=== PATIENT | male | born 1975 | race Caucasian/White ===

== ENCOUNTER 2024-05-17 09:41 | Emergency (ER) | payer BC ==
[~2024-05-17] VITALS: Ht 175.3 cm; Wt 77.1 kg
== END 2024-05-17 13:10 | disposition left against medical advice (07) ==
LOC: ER 09:41
DX: Z00.8 Encounter for other general examination (principal); I10 Essential (primary) hypertension
CPT/HCPCS: 93005; 93010; 99281-25

== ENCOUNTER 2024-05-22 10:02 | Day surgery (SDC) | payer OTHER ==
[~2024-05-22] VITALS: Ht 175.3 cm; Wt 77.4 kg
[~2024-05-22 10:02] MED LIST: Lidocaine 1%-Epineph 1:100000 20 ML MDV ONE; NS 500 ML IV ONE
[2024-05-22] MEDS ORDERED: HYDCHL25 PO (10:41)
[2024-05-22] MEDS ORDERED: LOSA50 PO (10:41)
[2024-05-22] MEDS ORDERED: MULTIVITAMIN (10:42)
[2024-05-22] MEDS ORDERED: NS 500 ML IV ONE ×2 (11:01→12:06)
[2024-05-22] MEDS ORDERED: CeFAZolin Sodium 2,000 MG VIAL ONE (11:05)
[2024-05-22] MEDS ORDERED: FentaNYL Citrate 50 MCG/ML 2 ML Injection ONE (11:21)
[2024-05-22] MEDS ORDERED: propofoL 20 ML IV ONE (11:22)
[2024-05-22] MEDS ORDERED: Dexamethasone Sod Phos 10 MG/ML 1ML VIAL ONE (11:23)
[2024-05-22] MEDS ORDERED: Ondansetron HCl 2 MG / ML 2ML Vial ONE (11:23)
[2024-05-22] MEDS ORDERED: Ropivacaine 0.5% HCL/PF 5 MG/ML 30ML Vial ONE (11:39)
[2024-05-22] MEDS ORDERED: Ketorolac Tromethamine 30mg Vial ONE (11:42)
--- NOTE | 2024-05-22 12:11 | NUR ---
05/22/24 1211 SUSANA JACKSON PT STILL SLEEPING. LMA IS STILL IN PLACE. BP IS SLOWLY COMING UP. DR KENDALL AT BEDSIDE WHEN PT FIRST IN, STATES PT IS NOT IN PAIN. NEW BAG FLUIDS WAS STARTED. PT LOOKS VERY PEACEFUL AT PRESENT.
[2024-05-22] MEDS ORDERED: DiphenhydrAMINE HCL 25 MG Cap ONE (12:36)
[2024-05-22] MEDS ORDERED: HYDROcodone 5-APAP 325 TAB ONE (12:43)
--- NOTE | 2024-05-22 12:44 | NUR ---
05/22/24 1244 SUSANA JACKSON PT SITTING IN CHAIR. EATING AND DRINKING WO DIFF. ACCORDING TO FLACC SCORE, PAIN 4/10. PT STATES PAIN IS 8/10- DULL ACHE, JUST A LITTLE UNCOMFORTABLE. WORSE THAN WHEN HE CAME INTO [facility]. PT ALSO HAS ITCHING UNDER BANDAGE TO WRIST- R. HOWEVER, NO ITCHING AT ELBOW. OBTAINED AN ORDER FOR BENADRYL 25MG PO AND WANTS PAIN MEDICINE.
== END 2024-05-22 13:23 | disposition home or self-care (01) ==
LOC: ORSCSDS 10:02 → EDBD 11:45 → ORSCSDS 13:23
PROVIDERS: Orthopaedic Surgery
PROC: 01N54ZZ Release Median Nerve, Percutaneous Endoscopic Approach (ICD-10-PCS; principal; 2024-05-22 11:45)
PROC: 01N40ZZ Release Ulnar Nerve, Open Approach (ICD-10-PCS; principal; 2024-05-22 11:45)
DX: G56.21 Lesion of ulnar nerve, right upper limb (principal); G56.01 Carpal tunnel syndrome, right upper limb; I10 Essential (primary) hypertension; E78.5 Hyperlipidemia, unspecified; Z79.899 Other long term (current) drug therapy; Z87.891 Personal history of nicotine dependence
CPT/HCPCS: A9270; J0690; J1100; J1885; J2405; J2704; J2795; J3010; J7040

== ENCOUNTER 2024-08-22 16:35 | Emergency (ER) | payer OTHER ==
[~2024-08-22] VITALS: Ht 175.3 cm; Wt 81.7 kg
[~2024-08-22 16:35] MED LIST changes: +HYDCHL25 PO; +LOSA50 PO; -Lidocaine 1%-Epineph 1:100000 20 ML MDV ONE; +MULTIVITAMIN; -NS 500 ML IV ONE
== END 2024-08-22 17:38 | disposition home or self-care (01) ==
LOC: ER 16:35
DX: S01.112A Laceration without foreign body of left eyelid and periocular area, initial encounter (principal); S01.81XA Laceration without foreign body of other part of head, initial encounter; Z88.4 Allergy status to anesthetic agent; Z79.899 Other long term (current) drug therapy; W20.8XXA Other cause of strike by thrown, projected or falling object, initial encounter
CPT/HCPCS: 70450; 99283-25

== ENCOUNTER 2024-10-16 07:05 | Day surgery (SDC) | payer OTHER ==
[~2024-10-16] VITALS: Ht 175.3 cm; Wt 80.2 kg
[~2024-10-16 07:05] MED LIST changes: +Lactated Ringer's 1,000 ML IV ONE
[2024-10-16] MEDS ORDERED: Lidocaine HCl 2% 10 ML SDA ONE (07:10)
[2024-10-16] MEDS ORDERED: CeFAZolin Sodium 2,000 MG VIAL ONE (07:43)
--- NOTE | 2024-10-16 07:50 | NUR ---
PT REPORTS HE HAS HAD ISSUES "COMING OUT OF ANESTHESIA" BUT THAT HE "DID JUST FINE AND HAD NO PROBLEMS" WHEN HE WAS HERE AT [facility] FOR THE SAME SURGERY ON THE RIGHT SIDE IN MAY.
[2024-10-16] MEDS ORDERED: Lactated Ringer's 1,000 ML IV ONE (08:14)
[2024-10-16] MEDS ORDERED: propofoL 20 ML IV ONE (08:14)
[2024-10-16] MEDS ORDERED: FentaNYL Citrate 50 MCG/ML 2 ML Injection ONE ×2 (08:18→08:27)
[2024-10-16] MEDS ORDERED: Ketorolac Tromethamine 30mg Vial ONE (08:26)
[2024-10-16] MEDS ORDERED: Ondansetron HCl 2 MG / ML 2ML Vial ONE (08:26)
[2024-10-16] MEDS ORDERED: Dexamethasone Sod Phos 10 MG/ML 1ML VIAL ONE (08:26)
--- NOTE | 2024-10-16 08:59 | NUR ---
10/16/24 0859 Courtney Burgos PT ASLEEP UPON ARRIVAL, ORAL AIRWAY IN PLACE UPON ARRIVAL AND JAW THRUST PROVIDED. PLACED ON 15L FACETENT,CURRENT O2 99%. REPORT RECEIVED FROM DAVE AND RN. DRESSINGS CDI. CAP REFILL ON LEFT HAND <3 SECONDS, LEFT FINGERS PINK, WARM AND DRY
--- NOTE | 2024-10-16 09:10 | NUR ---
10/16/24 0910 Courtney Burgos PT [id number]. LEFT ARM ELEVATED, ICE APPLIED. GLASSES RETURNED TO PATIENT. PT DENIES PAIN OR NAUSEA AT THIS TIME. DR COVINGTON AT BEDSIDE AT 0910
[2024-10-16] MEDS ORDERED: Acetaminophen 500 MG Tab ONE (09:27)
== END 2024-10-16 09:35 | disposition home or self-care (01) ==
LOC: ORSCSDS 07:05
PROVIDERS: Orthopaedic Surgery
PROC: 01N40ZZ Release Ulnar Nerve, Open Approach (ICD-10-PCS; principal; 2024-10-16 08:30)
PROC: 01N50ZZ Release Median Nerve, Open Approach (ICD-10-PCS; principal; 2024-10-16 08:30)
DX: G56.22 Lesion of ulnar nerve, left upper limb (principal); G56.02 Carpal tunnel syndrome, left upper limb; I10 Essential (primary) hypertension; E78.5 Hyperlipidemia, unspecified; Z79.899 Other long term (current) drug therapy
CPT/HCPCS: A9270; J0690; J1100; J1885; J2003; J2405; J2704; J3010; J7120